=== PATIENT | female | born 1965 | race Caucasian/White ===

== ENCOUNTER 2017-09-30 23:44 | Inpatient (IN) | payer SELFPAY ==
[~2017-09-30] VITALS: Ht 160 cm; Wt 71.8 kg
[2017-10-01 01:32] LABS: CHLORIDE 102 mEq/L (98-107)
[2017-10-01 01:34] LABS: BASOPHILS % 1.1 % (0.0-2.0); EOSINOPHILS % 2.6 % (0.0-5.0); HEMATOCRIT. 40.5 % (36.0-48.0); HEMOGLOBIN. 13.4 g/dL (12.0-16.0); LYMPHOCYTES % 22.7 % (20.0-50.0); MEAN CORPUSCULAR HEMOGLOBIN 26.9 pg (28.0-32.0); MEAN CORPUSCULAR VOLUME 81.2 fL (81.0-99.0); MEAN PLATELET VOLUME 9.9 fl (7.4-10.4); MONOCYTES % 8.5 % (2.0-8.0); NEUTROPHILS % 65.1 % (40.0-76.0); PLATELET 228 x1000/uL (130-400); RED BLOOD CELL COUNT 4.98 mill/uL (4.2-5.4); RED CELL DISTRIBUTION WIDTH 14.1 % (11.6-14.6)
[2017-10-01 01:41] LABS: LDL CHOLESTEROL 147 mg/dL (5-100)
[2017-10-01] MEDS ORDERED: SODIUM CHLORIDE 0.9% 1,000 ML IV SCH (03:07)
[2017-10-01 04:20] VITALS: BP 114/53
[2017-10-01] MEDS ORDERED: LISI10TA5 MT (05:05)
[2017-10-01] MEDS ORDERED: FAMO20TA8 MT (05:05)
[2017-10-01] MEDS ORDERED: HYDR25TA MT (05:05)
[2017-10-01] MEDS ORDERED: ACETAMINOPHEN 325MG TABLET PO PRN (05:15)
[2017-10-01 08:00] VITALS: BP 102/58
[2017-10-01] MEDS ORDERED: HYDROCHLOROTHIAZIDE 25MG TABLET PO SCH (09:00)
[2017-10-01] MEDS ORDERED: ENOXAPARIN 40MG/0.4ML SYR SUBCUT SCH (09:00)
[2017-10-01] MEDS ORDERED: LISINOPRIL 10MG TABLET PO SCH (09:00)
[2017-10-01] MEDS ORDERED: ASPIRIN 81MG EC TABLET PO SCH (09:00)
[2017-10-01] MEDS ORDERED: FAMOTIDINE 20MG TABLET PO SCH (09:00)
[2017-10-01 10:45] LABS: BASOPHILS % 0.5 % (0.0-2.0); EOSINOPHILS % 2.2 % (0.0-5.0); HEMATOCRIT. 38.2 % (36.0-48.0); HEMOGLOBIN. 12.6 g/dL (12.0-16.0); MEAN CORPUSCULAR HEMOGLOBIN 26.7 pg (28.0-32.0); MEAN PLATELET VOLUME 9.1 fl (7.4-10.4); MONOCYTES % 10.4 % (2.0-8.0); NEUTROPHILS % 62.9 % (40.0-76.0); PLATELET 214 x1000/uL (130-400); RED BLOOD CELL COUNT 4.72 mill/uL (4.2-5.4); RED CELL DISTRIBUTION WIDTH 14.1 % (11.6-14.6)
[2017-10-01 11:05] LABS: CHLORIDE 104 mEq/L (98-107)
[2017-10-01 11:57] VITALS: BP 102/58
[2017-10-01] MEDS ORDERED: ATORVASTATIN CALCIUM 10MG TABLET PO SCH (21:00)
== END 2017-10-01 12:20 | disposition home or self-care (01) | DRG 48 ==
LOC: ER 23:44 → 5WST 10-01 03:08 → EDBEDREQ 10-01 03:11 → EDBEDREQTM 10-01 03:11 → ENRESERV 10-01 03:36
PROVIDERS: ADMIT Internal Medicine Geriatric Medicine; ATTEND Internal Medicine Geriatric Medicine
DX: G51.0 Bell's palsy (principal); E66.01 Morbid (severe) obesity due to excess calories; I10 Essential (primary) hypertension; E78.00 Pure hypercholesterolemia, unspecified; G89.29 Other chronic pain; M25.569 Pain in unspecified knee; H70.92 Unspecified mastoiditis, left ear; M19.90 Unspecified osteoarthritis, unspecified site; H66.92 Otitis media, unspecified, left ear; Z79.899 Other long term (current) drug therapy; Z68.28 Body mass index [BMI] 28.0-28.9, adult
CPT/HCPCS: 36415; 70450; 70551; 71045; 80053; 83721; 84443; 84484; 85025; 93005; 93306; 96360; 96361; 99291; J1650; J7030; L1830